=== PATIENT | female | born 1945 | race Caucasian/White ===

== ENCOUNTER 2021-03-16 12:22 | Inpatient (IN) ==
[2021-03-16] MEDS ORDERED: *HR* Succinylcholine 200 MG/10 ML VIAL IVP ONE (12:46)
[2021-03-16] MEDS ORDERED: Lidocaine -MPF 2% 2 ML VIAL ONE (12:46)
[2021-03-16] MEDS ORDERED: Vancomycin 1,250 MG/262.5 ML IV.SOLN IVPB ONE (13:00)
[2021-03-16] MEDS ORDERED: Ringers Solution, Lactated 1,000 ML IVC SCH (13:00)
[2021-03-16] MEDS ORDERED: Bupivacaine/Clonidine Syringe 20 ML, Syringe LUER-LOK 1 EACH TP ONE (13:55)
[2021-03-16] MEDS ORDERED: Fluticasone Propionate Nasal 50 MCG/SPRAY BOTTLE NS PRN ×2 (16:41→16:58)
[2021-03-16 16:48] LABS: Basophils % 0.2 %; Eosinophils # 0.1 K/mcL (0.0-0.6); Eosinophils % 1.4 %; Hematocrit 33.6 % (35.3-44.9); Immature Granulocytes % 0.2 % (0-4); Lymphocytes # 2.5 K/mcL (0.6-4.6); Lymphocytes % 27.9 %; Mean Corpuscular HGB Conc 32.7 g/dL (31.6-35.5); Mean Corpuscular Hemoglobin 29.3 pg (28.0-33.3); Mean Corpuscular Volume 89.4 fL (83.0-100.0); Monocytes # 0.7 K/mcL (0.0-1.3); Monocytes % 7.4 %; Neutrophils # 5.5 K/mcL (1.6-8.9); Platelet Count 285 K/mcL (140-400); Red Blood Count 3.76 M/mcL (3.82-4.97); Red Cell Distribution Width 13.7 % (11.5-14.5); Segmented Neutrophils % 62.9 %; White Blood Count 8.8 K/mcL (4.3-11.1)
[2021-03-16 17:13] LABS: BUN/Creatinine Ratio 24 (6-26); Blood Urea Nitrogen 16 mg/dL (8-23); Calcium 9.2 mg/dL (8.6-10.3); Carbon Dioxide 26 mEq/L (23-29); Chloride 102 mEq/L (98-107); Glucose 234 mg/dL (70-105); Osmolality,Calculated 289 (280-300); Potassium 4.8 mEq/L (3.5-5.1); Sodium 135 mEq/L (136-145); eGFR For African Americans > 60 (> 60); eGFR For Non-African Americans > 60 (> 60)
[2021-03-16] MEDS: Ringers Solution, Lactated 1,000 ML IVC SCH (17:24)
[2021-03-16] MEDS ORDERED: Dextrose Gel 15 GM/37.5 ML TUBE PO PRN ×2 (17:40)
[2021-03-16] MEDS ORDERED: D5% in Water 1,000 ML IVC PRN (17:40)
[2021-03-16] MEDS ORDERED: *HR* Dextrose 50 % in Water (Vial) 50 ML VIAL IVP PRN (17:40)
[2021-03-16] MEDS: Insulin LISPRO 300 UNITS/3 ML VIAL SUBQ SCH (18:19)
[2021-03-16] MEDS ORDERED: Ammonium Lactate 30 APPL/225 GM BOTTLE TP SCH (21:00)
[2021-03-16] MEDS ORDERED: Insulin DETEMIR 100 UNIT/ML X5UNITS SUBQ SCH (21:00)
[2021-03-16] MEDS: Famotidine 20 MG TABLET PO SCH (21:22)
[2021-03-16] MEDS: Ammonium Lactate 30 APPL/225 GM BOTTLE TP SCH (21:23)
[2021-03-17] MEDS: Vancomycin 1,250 MG/262.5 ML IV.SOLN IVPB SCH ×2 (02:25→15:23)
[2021-03-17 03:02] LABS: Basophils % 0.3 %; Eosinophils # 0.2 K/mcL (0.0-0.6); Eosinophils % 1.9 %; Hematocrit 30.6 % (35.3-44.9); Immature Granulocytes % 0.3 % (0-4); Lymphocytes # 3.1 K/mcL (0.6-4.6); Lymphocytes % 32.7 %; Mean Corpuscular HGB Conc 32.7 g/dL (31.6-35.5); Mean Corpuscular Hemoglobin 29.1 pg (28.0-33.3); Mean Platelet Volume 9.6 fL (9.4-12.4); Monocytes # 0.8 K/mcL (0.0-1.3); Monocytes % 8.7 %; Neutrophils # 5.3 K/mcL (1.6-8.9); Platelet Count 281 K/mcL (140-400); Red Blood Count 3.44 M/mcL (3.82-4.97); Red Cell Distribution Width 13.7 % (11.5-14.5); Segmented Neutrophils % 56.1 %; White Blood Count 9.4 K/mcL (4.3-11.1)
[2021-03-17 03:20] LABS: BUN/Creatinine Ratio 24 (6-26); Blood Urea Nitrogen 16 mg/dL (8-23); Calcium 8.6 mg/dL (8.6-10.3); Carbon Dioxide 25 mEq/L (23-29); Chloride 100 mEq/L (98-107); Glucose 210 mg/dL (70-105); Osmolality,Calculated 283 (280-300); Potassium 4.4 mEq/L (3.5-5.1); Sodium 133 mEq/L (136-145); eGFR For African Americans > 60 (> 60); eGFR For Non-African Americans > 60 (> 60)
[2021-03-17] MEDS ORDERED: lisinopriL 20 MG TABLET PO SCH (09:00)
[2021-03-17] MEDS: Verapamil ER (24 HR) 120 MG TABLET.ER PO SCH ×2 (09:03→20:34)
[2021-03-17] MEDS: lisinopriL 20 MG TABLET PO SCH (09:03)
[2021-03-17] MEDS: Ammonium Lactate 30 APPL/225 GM BOTTLE TP SCH ×2 (09:04→20:36)
[2021-03-17] MEDS: Famotidine 20 MG TABLET PO SCH ×2 (09:04→20:34)
[2021-03-17] MEDS: Insulin LISPRO 300 UNITS/3 ML VIAL SUBQ SCH ×3 (09:11→17:01)
[2021-03-17 12:11] LABS: C-Reactive Protein 143 mg/L (Less than 10)
[2021-03-17] MEDS: metroNIDAZOLE 500 MG TABLET PO SCH ×2 (15:26→20:34)
[2021-03-17] MEDS: Cefepime HCl 2,000 MG in 0.9 % Sodium Chloride Mini Bag 100 ML IVPB SCH (17:01)
[2021-03-17] MEDS: Ringers Solution, Lactated 1,000 ML IVC SCH (17:02)
[2021-03-17] MEDS: Insulin DETEMIR 100 UNIT/ML X5UNITS SUBQ SCH (20:34)
[2021-03-18 02:02] LABS: Basophils % 0.2 %; Eosinophils # 0.3 K/mcL (0.0-0.6); Eosinophils % 3.4 %; Hematocrit 30.9 % (35.3-44.9); Hemoglobin 10.1 g/dL (11.5-15.4); Immature Granulocytes % 0.2 % (0-4); Lymphocytes # 3.3 K/mcL (0.6-4.6); Lymphocytes % 39.2 %; Mean Corpuscular HGB Conc 32.7 g/dL (31.6-35.5); Mean Corpuscular Hemoglobin 29.4 pg (28.0-33.3); Mean Corpuscular Volume 89.8 fL (83.0-100.0); Mean Platelet Volume 10.5 fL (9.4-12.4); Monocytes # 0.8 K/mcL (0.0-1.3); Monocytes % 10.1 %; Neutrophils # 3.9 K/mcL (1.6-8.9); Platelet Count 275 K/mcL (140-400); Red Blood Count 3.44 M/mcL (3.82-4.97); Red Cell Distribution Width 13.8 % (11.5-14.5); Segmented Neutrophils % 46.9 %; White Blood Count 8.3 K/mcL (4.3-11.1)
[2021-03-18] MEDS: Cefepime HCl 2,000 MG in 0.9 % Sodium Chloride Mini Bag 100 ML IVPB SCH (02:18)
[2021-03-18 02:23] LABS: BUN/Creatinine Ratio 21 (6-26); Blood Urea Nitrogen 15 mg/dL (8-23); Calcium 8.4 mg/dL (8.6-10.3); Carbon Dioxide 25 mEq/L (23-29); Chloride 100 mEq/L (98-107); Glucose 264 mg/dL (70-105); Osmolality,Calculated 286 (280-300); Potassium 4.2 mEq/L (3.5-5.1); Sodium 133 mEq/L (136-145); eGFR For African Americans > 60 (> 60); eGFR For Non-African Americans > 60 (> 60)
[2021-03-18] MEDS: Vancomycin 1,500 MG/265 ML IV.SOLN IVPB SCH ×2 (02:58→15:19)
[2021-03-18] MEDS: Verapamil ER (24 HR) 120 MG TABLET.ER PO SCH ×2 (08:48→20:46)
[2021-03-18] MEDS: metroNIDAZOLE 500 MG TABLET PO SCH ×3 (08:48→20:46)
[2021-03-18] MEDS: Famotidine 20 MG TABLET PO SCH ×2 (08:48→20:46)
[2021-03-18] MEDS: lisinopriL 20 MG TABLET PO SCH (08:49)
[2021-03-18] MEDS: Insulin LISPRO 300 UNITS/3 ML VIAL SUBQ SCH ×4 (08:51→17:46)
[2021-03-18] MEDS: Ammonium Lactate 30 APPL/225 GM BOTTLE TP SCH ×2 (08:55→20:46)
[2021-03-18] MEDS ORDERED: Lidocaine -MPF 1% 5 ML AMPUL INFILT ONE (13:30)
[2021-03-18] MEDS: Ringers Solution, Lactated 1,000 ML IVC SCH (17:44)
[2021-03-18] MEDS: *HR* Heparin 5,000 UNIT/ML VIAL SQ SCH (17:44)
[2021-03-18] MEDS: Insulin DETEMIR 100 UNIT/ML X5UNITS SUBQ SCH (20:46)
[2021-03-19] MEDS: Vancomycin 1,500 MG/265 ML IV.SOLN IVPB SCH ×2 (03:25→15:44)
[2021-03-19 04:50] LABS: Basophils % 0.4 %; Eosinophils # 0.3 K/mcL (0.0-0.6); Eosinophils % 4.7 %; Hemoglobin 10.9 g/dL (11.5-15.4); Immature Granulocytes % 0.4 % (0-4); Lymphocytes # 2.7 K/mcL (0.6-4.6); Lymphocytes % 36.4 %; Mean Corpuscular Hemoglobin 29.2 pg (28.0-33.3); Mean Corpuscular Volume 88.5 fL (83.0-100.0); Mean Platelet Volume 9.3 fL (9.4-12.4); Monocytes # 0.7 K/mcL (0.0-1.3); Monocytes % 9.2 %; Neutrophils # 3.6 K/mcL (1.6-8.9); Platelet Count 309 K/mcL (140-400); Red Blood Count 3.73 M/mcL (3.82-4.97); Red Cell Distribution Width 13.4 % (11.5-14.5); Segmented Neutrophils % 48.9 %; White Blood Count 7.3 K/mcL (4.3-11.1)
[2021-03-19 05:11] LABS: BUN/Creatinine Ratio 18 (6-26); Blood Urea Nitrogen 12 mg/dL (8-23); Calcium 8.7 mg/dL (8.6-10.3); Carbon Dioxide 24 mEq/L (23-29); Chloride 101 mEq/L (98-107); Glucose 178 mg/dL (70-105); Osmolality,Calculated 282 (280-300); Potassium 4.1 mEq/L (3.5-5.1); Sodium 134 mEq/L (136-145); eGFR For African Americans > 60 (> 60); eGFR For Non-African Americans > 60 (> 60)
[2021-03-19] MEDS: *HR* Heparin 5,000 UNIT/ML VIAL SQ SCH ×2 (05:27→16:59)
[2021-03-19] MEDS: Insulin LISPRO 300 UNITS/3 ML VIAL SUBQ SCH ×6 (09:58→16:58)
[2021-03-19] MEDS: Ammonium Lactate 30 APPL/225 GM BOTTLE TP SCH ×2 (09:59→20:31)
[2021-03-19] MEDS: Famotidine 20 MG TABLET PO SCH ×2 (10:00→20:26)
[2021-03-19] MEDS: metroNIDAZOLE 500 MG TABLET PO SCH ×3 (10:00→20:26)
[2021-03-19] MEDS: lisinopriL 20 MG TABLET PO SCH (10:00)
[2021-03-19] MEDS: Verapamil ER (24 HR) 120 MG TABLET.ER PO SCH ×2 (12:22→20:25)
[2021-03-19] MEDS: Ringers Solution, Lactated 1,000 ML IVC SCH (16:57)
[2021-03-19] MEDS: Vancomycin 1,750 MG/517.5 ML IV.SOLN IVPB SCH (16:58)
[2021-03-19] MEDS: Insulin DETEMIR 100 UNIT/ML X5UNITS SUBQ SCH (20:26)
[2021-03-20 03:10] LABS: Basophils % 0.3 %; Eosinophils # 0.3 K/mcL (0.0-0.6); Eosinophils % 3.9 %; Hematocrit 32.1 % (35.3-44.9); Hemoglobin 10.6 g/dL (11.5-15.4); Immature Granulocytes % 0.3 % (0-4); Lymphocytes % 37.7 %; Mean Corpuscular Hemoglobin 29.4 pg (28.0-33.3); Mean Corpuscular Volume 89.2 fL (83.0-100.0); Monocytes # 0.7 K/mcL (0.0-1.3); Monocytes % 8.8 %; Neutrophils # 3.9 K/mcL (1.6-8.9); Platelet Count 317 K/mcL (140-400); Red Cell Distribution Width 13.4 % (11.5-14.5); White Blood Count 7.9 K/mcL (4.3-11.1)
[2021-03-20 03:24] LABS: BUN/Creatinine Ratio 19 (6-26); Blood Urea Nitrogen 13 mg/dL (8-23); Calcium 8.5 mg/dL (8.6-10.3); Carbon Dioxide 24 mEq/L (23-29); Chloride 102 mEq/L (98-107); Glucose 179 mg/dL (70-105); Osmolality,Calculated 283 (280-300); Potassium 4.3 mEq/L (3.5-5.1); Sodium 134 mEq/L (136-145); eGFR For African Americans > 60 (> 60); eGFR For Non-African Americans > 60 (> 60)
[2021-03-20] MEDS: Vancomycin 1,750 MG/517.5 ML IV.SOLN IVPB SCH ×2 (04:53→16:07)
[2021-03-20] MEDS: *HR* Heparin 5,000 UNIT/ML VIAL SQ SCH ×2 (06:03→16:06)
[2021-03-20] MEDS: Verapamil ER (24 HR) 120 MG TABLET.ER PO SCH ×2 (09:51→20:33)
[2021-03-20] MEDS: lisinopriL 20 MG TABLET PO SCH (09:52)
[2021-03-20] MEDS: Famotidine 20 MG TABLET PO SCH ×2 (09:52→20:33)
[2021-03-20] MEDS: Insulin LISPRO 300 UNITS/3 ML VIAL SUBQ SCH ×6 (09:52→16:06)
[2021-03-20] MEDS: Ammonium Lactate 30 APPL/225 GM BOTTLE TP SCH (09:54)
[2021-03-20] MEDS: metroNIDAZOLE 500 MG TABLET PO SCH ×3 (09:54→20:33)
[2021-03-20] MEDS: Ringers Solution, Lactated 1,000 ML IVC SCH (16:07)
[2021-03-20] MEDS: Insulin DETEMIR 100 UNIT/ML X5UNITS SUBQ SCH (20:34)
[2021-03-21 04:51] LABS: Basophils % 0.3 %; Eosinophils # 0.4 K/mcL (0.0-0.6); Eosinophils % 4.7 %; Hematocrit 32.5 % (35.3-44.9); Hemoglobin 10.8 g/dL (11.5-15.4); Immature Granulocytes % 0.4 % (0-4); Lymphocytes # 2.8 K/mcL (0.6-4.6); Lymphocytes % 36.8 %; Mean Corpuscular HGB Conc 33.2 g/dL (31.6-35.5); Mean Corpuscular Hemoglobin 29.4 pg (28.0-33.3); Mean Corpuscular Volume 88.6 fL (83.0-100.0); Mean Platelet Volume 9.6 fL (9.4-12.4); Monocytes # 0.7 K/mcL (0.0-1.3); Monocytes % 9.1 %; Neutrophils # 3.7 K/mcL (1.6-8.9); Platelet Count 323 K/mcL (140-400); Red Blood Count 3.67 M/mcL (3.82-4.97); Red Cell Distribution Width 13.6 % (11.5-14.5); Segmented Neutrophils % 48.7 %; White Blood Count 7.5 K/mcL (4.3-11.1)
[2021-03-21 05:09] LABS: BUN/Creatinine Ratio 20 (6-26); Blood Urea Nitrogen 13 mg/dL (8-23); Calcium 8.7 mg/dL (8.6-10.3); Carbon Dioxide 27 mEq/L (23-29); Chloride 101 mEq/L (98-107); Glucose 169 mg/dL (70-105); Osmolality,Calculated 284 (280-300); Potassium 4.2 mEq/L (3.5-5.1); Sodium 135 mEq/L (136-145); eGFR For African Americans > 60 (> 60); eGFR For Non-African Americans > 60 (> 60)
[2021-03-21] MEDS: Ammonium Lactate 30 APPL/225 GM BOTTLE TP SCH ×3 (05:27→20:53)
[2021-03-21] MEDS: Vancomycin 1,750 MG/517.5 ML IV.SOLN IVPB SCH ×2 (05:32→16:08)
[2021-03-21] MEDS: *HR* Heparin 5,000 UNIT/ML VIAL SQ SCH ×2 (05:32→18:27)
[2021-03-21] MEDS: lisinopriL 20 MG TABLET PO SCH (09:15)
[2021-03-21] MEDS: Famotidine 20 MG TABLET PO SCH ×2 (09:15→20:50)
[2021-03-21] MEDS: Insulin LISPRO 300 UNITS/3 ML VIAL SUBQ SCH ×6 (09:16→18:27)
[2021-03-21] MEDS: Verapamil ER (24 HR) 120 MG TABLET.ER PO SCH ×2 (09:16→20:50)
[2021-03-21] MEDS: metroNIDAZOLE 500 MG TABLET PO SCH ×2 (09:16→14:47)
[2021-03-21] MEDS: Nystatin POWDER 30 GM BOTTLE TP SCH ×2 (16:16→20:54)
[2021-03-21] MEDS: Insulin DETEMIR 100 UNIT/ML X5UNITS SUBQ SCH (20:51)
[2021-03-22] MEDS: Ringers Solution, Lactated 1,000 ML IVC SCH (05:57)
[2021-03-22] MEDS: *HR* Heparin 5,000 UNIT/ML VIAL SQ SCH (06:02)
[2021-03-22] MEDS: Vancomycin 1,750 MG/517.5 ML IV.SOLN IVPB SCH ×2 (06:02→16:16)
[2021-03-22] MEDS: Verapamil ER (24 HR) 120 MG TABLET.ER PO SCH (07:39)
[2021-03-22] MEDS: Famotidine 20 MG TABLET PO SCH (07:39)
[2021-03-22] MEDS: lisinopriL 20 MG TABLET PO SCH (07:39)
[2021-03-22] MEDS: Insulin LISPRO 300 UNITS/3 ML VIAL SUBQ SCH ×6 (07:40→17:00)
[2021-03-22] MEDS: Ammonium Lactate 30 APPL/225 GM BOTTLE TP SCH (07:40)
[2021-03-22] MEDS: Nystatin POWDER 30 GM BOTTLE TP SCH (07:40)
[2021-03-22 07:41] LABS: BUN/Creatinine Ratio 18 (6-26); Blood Urea Nitrogen 13 mg/dL (8-23); Calcium 8.8 mg/dL (8.6-10.3); Carbon Dioxide 28 mEq/L (23-29); Chloride 102 mEq/L (98-107); Glucose 181 mg/dL (70-105); Osmolality,Calculated 287 (280-300); Potassium 4.2 mEq/L (3.5-5.1); Sodium 136 mEq/L (136-145); eGFR For African Americans > 60 (> 60); eGFR For Non-African Americans > 60 (> 60)
[2021-03-22 11:23] VITALS: BP 150/72
== END 2021-03-22 18:10 | disposition home health service (06) | DRG 623 ==
LOC: SAMDAY 12:22 → 3ANU 15:36 → SUATTDRO 15:36
PROVIDERS: ADMIT Podiatrist Foot Surgery; ATTEND Student in an Organized Health Care Education/Training Program